=== PATIENT | male | born 1950 | race African-American/Black ===

== ENCOUNTER 2017-05-18 12:22 | Emergency (ER) | payer OTHER, BC ==
[2017-05-18 12:31] VITALS: BP 135/79
[2017-05-18] MEDS ORDERED: KETOROLAC TROMETHAMINE 60 MG/2 ML SDV IM ONE (13:11)
--- NOTE | 2017-05-18 13:17 | ER Document Report ---
ED Neck/Back Problem - General Chief Complaint: Back Pain Stated Complaint: LOW BACK PAIN Time Seen by Provider: 05/18/17 12:59 Mode of Arrival: Ambulatory Information source: Patient TRAVEL OUTSIDE OF THE [place] IN LAST 30 DAYS: No - HPI Patient complains to provider of: Pain Onset: Yesterday Where: Home Onset: Sudden Timing: Constant Quality of pain: Achy, Cramping Severity: Moderate Pain Level: 2 Context: denies: Became dizzy, Fall/near-fall, Seizure Recent injury: No Associated symptoms: Like prior neck/back pain, Lower back pain. denies: Chest pain, Abdominal pain, Chills, Constipation, Fever, Incontinence, Motor loss, Numbness/tingling, Radiation to arm, Radiation to chest, Radiation to leg, Sensory loss, Sweaty, Unable to urinate, Upper back pain Exacerbated by: Movement of trunk Relieved by: Remaining still Similar symptoms previously: Yes Recently seen / treated by doctor: Yes Notes: This is a very pleasant 66-year-old male with a history of low back pain that arrives with complaints of low back pain. States that he normally takes Naprosyn but is currently out. He states that he stepped down hard yesterday at home and since that time has had some spasms in his lower back. He states that he has had this in the past and that this feels exactly the same as prior low back pain he has had. He denies any trauma or fall. He denies abdominal pain. He denies bowel or bladder dysfunction. He denies blood thinners. He denies IV drug use or fevers. No numbness tingling or weakness. The pain is worse when he moves his back, better with rest. No other complaints at this time. - Related Data Allergies/Adverse Reactions: bacitracin [From Neosporin] Allergy (Verified 05/08/16 17:33) bacitracin zinc [From Neosporin] Allergy (Verified 05/08/16 17:33) gramicidin D [From Neosporin] Allergy (Verified 05/08/16 17:33) neomycin sulfate [From Neosporin] Allergy (Verified 05/08/16 17:33) polymyxin B [From Neosporin] Allergy (Verified 05/08/16 17:33) polymyxin B sulfate [From Neosporin] Allergy (Verified 05/08/16 17:33) Past Medical History - Social History Smoking Status: Unknown if Ever Smoked Family History: CVA, DM, Hyperlipidemia, Hypertension Patient has suicidal ideation: No Patient has homicidal ideation: No - Past Medical History Cardiac Medical History: Reports: Hx Hypercholesterolemia, Hx Hypertension Renal/ Medical History: Denies: Hx Peritoneal Dialysis Musculoskeltal Medical History: 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 HEAD: normocephalic, atraumatic EYES: conjunctiva pink without discharge, no external redness or swelling. EARS: no external swelling, no external redness NOSE: atraumatic, no external swelling MOUTH/THROAT: mucous membranes moist and pink, posterior pharynx without erythema, swelling, exudate. No trismus or drooling. NECK: soft, supple, full range of motion, no meningismus. CHEST: no distress, lungs clear and equal throughout. No wheezing, rales, rhonchi. CARDIAC: regular rate and rhythm, no murmur, normal capillary refill, normal pulses. No peripheral edema noted. ABDOMEN: soft, nontender, no pusatile mass. BACK: Tenderness to palpation of the lumbar spine and lumbar paraspinal muscles with mild spasm noted to the bilateral lumbar paraspinal muscles. No CVA tenderness. EXTREMITIES: full range of motion of all extremities. No redness, no swelling. NEURO: alert and oriented -3, no focal deficits, full range of motion of all extremities. 5 out of 5 flexion and extension of the lower extremities bilaterally. Patellar and Achilles deep tendon reflexes are +2 bilaterally. Normal sensation with no saddle anesthesia. PYSCH: appropriate mood, affect. Patient is cooperative. SKIN: pink, warm, dry, no rash. Course - Re-evaluation Re-evalutation: 05/18/17 13:15 The patient is nontoxic appearing with stable vitals. The patient has a history of low back pain. He started having low back pain when he stepped down hard yesterday and states that he is having spasms in his lower back. He has an exam consistent with lumbar paraspinal muscle spasm. Is no sign or risk of cauda equina/epidural abscess/bleed, discitis, AAA, or other serious cause of back pain. He has no abdominal tenderness on exam. Normal pulses. No fever. Patient will be given a shot of Toradol in the emergency department and discharged home with Naprosyn and Zanaflex. Follow-up with his doctor if not better in the next 5-7 days, sooner for increased pain, fever, difficulty controlling bowels or bladder, or any further concerns. The patient is noted to have elevated blood pressure during today's emergency department visit. The patient was informed of this finding. The patient was instructed that this may be related to pre-hypertension and requires further evaluation with a primary care provider. The patient has no hypertensive symptoms at this time. - Vital Signs Vital signs: Temp Pulse Resp BP Pulse Ox 97.9 F 79 16 135/79 H 99 05/18/17 12:28 05/18/17 12:28 05/18/17 12:28 05/18/17 12:28 05/18/17 12:28 Discharge - Discharge Clinical Impression: Lumbar paraspinal muscle spasm Condition: Stable Disposition: HOME, SELF-CARE Instructions: Low Back Pain ([facility]), Muscle Strain ([facility]) Additional Instructions: Take medications as prescribed. Rest. Ice or heat to sore area. Follow-up if not better in 1 week, sooner for increased pain, fever, difficulty controlling her bowels or bladder, or any further concerns. Your blood pressure was elevated during today's visit. Have this rechecked with your doctor. Prescriptions: Naproxen 500 mg PO BID #20 tablet Tizanidine HCl [Zanaflex 4 Mg Tablet] 4 mg PO TID PRN #15 tablet PRN Reason: Forms: Elevated Blood Pressure
== END 2017-05-18 13:23 | disposition home or self-care (01) ==
LOC: ER 12:22
DX: M62.830 Muscle spasm of back (principal); M54.5 Low back pain; I10 Essential (primary) hypertension; Z88.3 Allergy status to other anti-infective agents
CPT/HCPCS: 99283; 96372; J1885

== ENCOUNTER 2017-06-20 09:56 | Emergency (ER) | payer OTHER, BC ==
[2017-06-20] MEDS ORDERED: MECLIZINE HCL 25 MG TABLET PO ONE (10:10)
--- NOTE | 2017-06-20 10:12 | ER Document Report ---
ED Dizziness/Weakness - General Chief Complaint: Dizziness Stated Complaint: DIZZINESS Time Seen by Provider: 06/20/17 10:01 Mode of Arrival: Ambulatory Information source: Patient TRAVEL OUTSIDE OF THE [place] IN LAST 30 DAYS: No - HPI Patient complains to provider of: Dizziness Onset: Other - 4 days Onset/Duration: Intermittent Quality of pain: Fullness Severity: Mild Pain Level: 1 Exacerbated by: Change in position Baseline gait: Walks w/o assistance Notes: Patient is a 66-year-old male presenting to the emergency room today complaining of disease weakness that has been going on intermittently over the past 4 days, symptoms are worsened when he is bending over and then stands up straight, he reports sinus congestion with a mild headache, blurred vision at times, nausea at times but no vomiting, no fever or chills, no head injury, he does report sinus fullness, history of similar symptoms with sinus infection 2 years ago and then again one year ago, symptoms resolved after course of antibiotics, patient denies any chest pain or shortness of breath - Related Data Allergies/Adverse Reactions: bacitracin [From Neosporin] Allergy (Verified 06/20/17 09:59) bacitracin zinc [From Neosporin] Allergy (Verified 06/20/17 09:59) gramicidin D [From Neosporin] Allergy (Verified 06/20/17 09:59) neomycin sulfate [From Neosporin] Allergy (Verified 06/20/17 09:59) polymyxin B [From Neosporin] Allergy (Verified 06/20/17 09:59) polymyxin B sulfate [From Neosporin] Allergy (Verified 06/20/17 09:59) Past Medical History - General Information source: Patient - Social History Smoking Status: Former Smoker Family History: CVA, DM, Hyperlipidemia, Hypertension - Past Medical History Cardiac Medical History: Reports: Hx Hypercholesterolemia, Hx Hypertension Renal/ Medical History: Denies: Hx Peritoneal Dialysis Musculoskeltal Medical History: 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 Traumatic Medical History: Reports: Hx Fractures - Finger needed reattached Past Surgical History: Reports: Hx Orthopedic Surgery - Reattachment of finger - Immunizations Hx Diphtheria, Pertussis, Tetanus Vaccination: Yes Review of Systems - Review of Systems Constitutional: No symptoms reported EENT: Sinus pressure Cardiovascular: Dizziness Respiratory: No symptoms reported Gastrointestinal: No symptoms reported Genitourinary: No symptoms reported Male Genitourinary: No symptoms reported Musculoskeletal: No symptoms reported Skin: No symptoms reported Hematologic/Lymphatic: No symptoms reported Neurological/Psychological: No symptoms reported -: Yes All other systems reviewed and negative Physical Exam - Vital signs Vitals: Temp Pulse Resp BP Pulse Ox 97.9 F 75 16 150/78 H 97 06/20/17 10:00 06/20/17 10:00 06/20/17 10:00 06/20/17 10:00 06/20/17 10:00 Interpretation: Normal - General General appearance: Appears well, Alert - HEENT Head: Normocephalic, Atraumatic Eyes: Normal Conjunctiva: Normal Extraocular movements intact: Yes Eyelashes: Normal Pupils: PERRL Sinus: Maxillary, Tenderness Nasal: Normal Mouth/Lips: Normal - Respiratory Respiratory status: No respiratory distress Chest status: Nontender Breath sounds: Normal Chest palpation: Normal - Cardiovascular Rhythm: Regular Heart sounds: Normal auscultation Murmur: No - Abdominal Inspection: Normal Distension: No distension Bowel sounds: Normal Tenderness: Nontender Organomegaly: No organomegaly - Back Back: Normal, Nontender - Extremities General upper extremity: Normal inspection, Nontender, Normal color, Normal ROM , Normal temperature General lower extremity: Normal inspection, Nontender, Normal color, Normal ROM , Normal temperature, Normal weight bearing. No: Ralph's sign - Neurological Neuro grossly intact: Yes Cognition: Normal Orientation: AAOx4 Dingess Coma Scale Eye Opening: Spontaneous Floyd Coma Scale Verbal: Oriented Dingess Coma Scale Motor: Obeys Commands Floyd Coma Scale Total: 15 Speech: Normal Motor strength normal: LUE, RUE, LLE, RLE Sensory: Normal - Psychological Associated symptoms: Normal affect, Normal mood - Skin Skin Temperature: Warm Skin Moisture: Dry Skin Color: Normal Course - Re-evaluation Re-evalutation: 06/20/17 15:48 Patient reports some improvement with meclizine, and imaging findings were discussed with him at bedside which are unremarkable, patient was discharged with prescription for meclizine and advised to follow-up with his primary care provider, patient acknowledges understanding and agreement with this plan - Vital Signs Vital signs: Temp Pulse Resp BP Pulse Ox 98.5 F 70 16 139/82 H 98 06/20/17 11:12 06/20/17 11:12 06/20/17 11:12 06/20/17 11:12 06/20/17 11:12 - Diagnostic Test Radiology reviewed: Image reviewed, Reports reviewed Discharge - Discharge Clinical Impression: Dizziness Condition: Stable Disposition: HOME, SELF-CARE Instructions: Dizziness ([facility]), Meclizine ([facility]) Additional Instructions: Follow up with your primary care provider in one to 2 days. Return to the emergency room immediately if symptoms worsen or any additional concerns. Prescriptions: Meclizine HCl [Antivert 25 mg Tablet] 25 mg PO TID #20 tablet Referrals: CARMEN SALDANA PA [Primary Care Provider] - Follow up as needed
--- NOTE | 2017-06-20 11:02 | RADIOLOGY REPORT (SQ) ---
EXAM DESCRIPTION: CT HEAD WITHOUT COMPLETED DATE/TIME: 06/20/2017 10:33 am REASON FOR STUDY: injury COMPARISON: 2014. TECHNIQUE: Axial images acquired through the brain without intravenous contrast. Images reviewed wi th bone, brain and subdural windows. Images stored on PACS. All CT scanners at this facility use dose modulation, iterative reconstruction, and/or weight based d osing when appropriate to reduce radiation dose to as low as reasonably achievable (ALARA). [facility]: Dose Right [facility]: CareDose [facility]: Dose Right [facility]: Teradose 4D [facility]: [employer] RADIATION DOSE: Up-to-date CT equipment and radiation dose reduction techniques were employed. CTDIv ol: 64.6 mGy. DLP: 1163 mGy-cm. mGy. LIMITATIONS: None. FINDINGS: VENTRICLES: Normal size and contour. CEREBRUM: No masses. No hemorrhage. No midline shift. No evidence for acute infarction. Normal gra y/white matter differentiation. No areas of low density in the white matter. CEREBELLUM: No masses. No hemorrhage. No alteration of density. No evidence for acute infarction. EXTRAAXIAL SPACES: No fluid collections. No masses. ORBITS AND GLOBE: No intra- or extraconal masses. Normal contour of globe without masses. CALVARIUM: No fracture. PARANASAL SINUSES: No fluid or mucosal thickening. SOFT TISSUES: No mass or hematoma. OTHER: No other significant finding. IMPRESSION: NORMAL BRAIN CT WITHOUT CONTRAST. EVIDENCE OF ACUTE STROKE: NO. COMMENT: Quality ID # [id number]: Final reports with documentation of one or more dose reduction techniques (e.g., Automated exposure control, adjustment of the mA and/or kV according to patient size, use of iterative reconstruction technique) TECHNICAL DOCUMENTATION: JOB ID: [id number] [employer]- All Rights Reserved
[2017-06-20 11:14] VITALS: BP 139/82
== END 2017-06-20 11:15 | disposition home or self-care (01) ==
LOC: ER 09:56
DX: R42 Dizziness and giddiness (principal); R53.1 Weakness; R09.81 Nasal congestion; R51 Headache; H53.8 Other visual disturbances; R11.0 Nausea; Z88.3 Allergy status to other anti-infective agents; Z87.891 Personal history of nicotine dependence; I10 Essential (primary) hypertension; Z82.3 Family history of stroke
CPT/HCPCS: 70450; 99284

== ENCOUNTER 2017-09-23 19:48 | Emergency (ER) | payer OTHER, BC ==
[2017-09-23] MEDS ORDERED: AZITHROMYCIN 250 MG TABLET ONE (20:48)
[2017-09-23] MEDS ORDERED: HYDROCODONE/ACETAMINOPHEN 5-325 MG (6 TAB/ER DISP) ONE (20:49)
--- NOTE | 2017-09-23 22:11 | EKG REPORT ---
SEVERITY:- ABNORMAL ECG - SINUS RHYTHM INCOMPLETE RIGHT BUNDLE BRANCH BLOCK : Confirmed by: Gisella St 23-Sep-2017 22:11:24
--- NOTE | 2017-09-24 09:15 | RADIOLOGY REPORT (SQ) ---
EXAM DESCRIPTION: RIBS LEFT W/PA CHEST COMPLETED DATE/TIME: 09/24/2017 12:36 am REASON FOR STUDY: RIB PAIN WITH INJURY COMPARISON: 12/01/2015 TECHNIQUE: Frontal view of the chest and additional views of the left ribs acquired. NUMBER OF VIEWS: Five view. LIMITATIONS: None. FINDINGS: FRONTAL CXR: No pneumothorax. No pleural effusion. No atelectasis or infiltrates. RIBS: There is an old healed anterior 7th rib fracture. No identified acute fracture. OTHER: No other significant finding. IMPRESSION: No acute fracture. Old healed anterior 7th rib fracture. No pneumothorax. COMMENT: SITE OF TRAUMA/COMPLAINT MARKED/STAMP COMPLETED: NO. TECHNICAL DOCUMENTATION: JOB ID: [id number] [employer] [facility]- All Rights Reserved
== END 2017-09-23 21:00 | disposition home or self-care (01) ==
LOC: ER 19:48
DX: J40 Bronchitis, not specified as acute or chronic (principal); S29.011A Strain of muscle and tendon of front wall of thorax, initial encounter; X58.XXXA Exposure to other specified factors, initial encounter; I10 Essential (primary) hypertension; E78.5 Hyperlipidemia, unspecified
CPT/HCPCS: 93005; 93010; 99285

== ENCOUNTER 2017-11-26 16:09 | Emergency (ER) | payer OTHER, BC ==
--- NOTE | 2017-11-26 18:28 | RADIOLOGY REPORT (SQ) ---
EXAM DESCRIPTION: L SPINE WHOLE COMPLETED DATE/TIME: 11/26/2017 6:14 pm REASON FOR STUDY: PAIN COMPARISON: None. NUMBER OF VIEWS: Five views including obliques. TECHNIQUE: AP, lateral, oblique, and sacral radiographic images acquired of the lumbar spine. LIMITATIONS: None. FINDINGS: MINERALIZATION: Normal. SEGMENTATION: Normal. No transitional anatomy. ALIGNMENT: Normal. VERTEBRAE: Maintained height. No fracture or worrisome bone lesion. DISCS: Preserved height. No significant osteophytes or end plate irregularity. POSTERIOR ELEMENTS: Pedicles and facets are intact. No pars defect or posterior arch defects. HARDWARE: None in the spine. PARASPINAL SOFT TISSUES: Normal. PELVIS: Intact as visualized. No fractures or worrisome bone lesions. SI joints intact. OTHER: No other significant finding. IMPRESSION: No significant vertebral compression or disc space reduction is seen. No significant de generative changes are identified. Other findings as noted above TECHNICAL DOCUMENTATION: JOB ID: [id number] [employer]- All Rights Reserved Reading location - IP/workstation name: [email or web address]
[2017-11-26] MEDS ORDERED: TRAMADOL HCL 50 MG TABLET PO ONE (18:32)
--- NOTE | 2017-11-26 18:38 | ER Document Report ---
ED Neck/Back Problem - General Chief Complaint: Low Back Pain Stated Complaint: BACK PAIN Time Seen by Provider: 11/26/17 17:57 Mode of Arrival: Ambulatory Information source: Patient TRAVEL OUTSIDE OF THE [place] IN LAST 30 DAYS: No - HPI Patient complains to provider of: Pain, Lower back Notes: Patient is here with complaints of left low back pain. States the pain started last night when he has went to step up a step. The pain was sudden. He has had very similar pain to this in the past. He denies any traumatic injury. No fall. He denies any numbness, tingling, weakness. He denies abdominal pain. He denies bowel or bladder dysfunction, IV drug use, blood thinners, weakness in the legs. He denies dysuria or hematuria. No rash. No chest pain or shortness of breath. Patient has a history of intermittent back pain very similar to this in the past. He reports that he has been taking Naprosyn without any relief. Pain is worse with any sort of movement, nothing seems to make it better. He denies any other complaints at this time. - Related Data Allergies/Adverse Reactions: bacitracin [From Neosporin] Allergy (Verified 11/26/17 16:10) bacitracin zinc [From Neosporin] Allergy (Verified 11/26/17 16:10) gramicidin D [From Neosporin] Allergy (Verified 11/26/17 16:10) neomycin sulfate [From Neosporin] Allergy (Verified 11/26/17 16:10) polymyxin B [From Neosporin] Allergy (Verified 11/26/17 16:10) polymyxin B sulfate [From Neosporin] Allergy (Verified 11/26/17 16:10) Past Medical History - Social History Smoking Status: Unknown if Ever Smoked Family History: CVA, DM, Hyperlipidemia, Hypertension - Past Medical History Cardiac Medical History: Reports: Hx Hypercholesterolemia, Hx Hypertension Renal/ Medical History: Denies: Hx Peritoneal Dialysis Musculoskeltal Medical History: 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 HEAD: normocephalic, atraumatic EYES: conjunctiva pink without discharge, no external redness or swelling. EARS: no external swelling, no external redness NOSE: atraumatic, no external swelling MOUTH/THROAT: mucous membranes moist and pink, posterior pharynx without erythema, swelling, exudate. No trismus or drooling. NECK: soft, supple, full range of motion, no meningismus. CHEST: no distress, lungs clear and equal throughout. No wheezing, rales, rhonchi. CARDIAC: regular rate and rhythm, no murmur, normal capillary refill, normal pulses. No peripheral edema noted. ABDOMEN: soft, nontender, no pusatile mass. BACK: No CVA tenderness. Tenderness to the left SI joint/L5 area. No midline tenderness step-offs or crepitus. EXTREMITIES: full range of motion of all extremities. No redness, no swelling. NEURO: alert and oriented A&O x 3, no focal deficits, full range of motion of all extremities. 5 out of 5 flexion and extension of the lower extremities bilaterally. Patellar and Achilles deep tendon reflexes are +2 bilaterally. Normal sensation with no saddle anesthesia. Patient can dorsiflex the great toes bilaterally. PYSCH: appropriate mood, affect. Patient is cooperative. SKIN: pink, warm, dry, no rash. Course - Re-evaluation Re-evalutation: 11/26/17 18:35 The patient is nontoxic appearing with stable vitals. The patient is here with complaints of left low back pain. This started suddenly when he was stepping up on a step yesterday. The pain is worse with movement. He has a history of having pain very similar this in the past. He denies any trauma or falls. Is not on blood thinners. He has no sign or risk of cauda equina, epidural abscess /bleed, discitis, osteomyelitis. He denies any urinary symptoms. No abdominal pain. No sign of AAA. This feels very similar to pain that he has had in his back in the past. He has tried Naprosyn without relief. This point pain certainly appears to be muscular skeletal in nature. He had an x-ray today that shows no acute abnormality. The patient will be given a dose of tramadol and discharged home with tramadol to take as needed for pain. He was instructed to follow-up with his primary care doctor at the next available appointment. He should return the emergency department if he develops worsening pain, high fever, difficulty controlling his bowels or his bladder, weakness, or for any further concerns. The patient is noted to have elevated blood pressure during today's emergency department visit. The patient was informed of this finding. The patient was instructed that this may be related to pre-hypertension and requires further evaluation with a primary care provider. The patient has no hypertensive symptoms at this time. The patient's emergency department workup and current diagnosis were explained to the patient and or family. Follow-up instructions were provided. Medications if prescribed were discussed. Instructions for when to return to the emergency department including specific worrisome symptoms were discussed with the patient and/or family. - Vital Signs Vital signs: Temp Pulse Resp BP Pulse Ox 98.3 F 78 17 143/84 H 97 11/26/17 16:24 11/26/17 16:24 11/26/17 16:24 11/26/17 16:24 11/26/17 16:24 - Diagnostic Test Radiology reviewed: Image reviewed, Reports reviewed - Lumbar spine without acute findings per the radiologist. Discharge - Discharge Clinical Impression: Lumbar strain Qualifiers: Encounter type: initial encounter Qualified Code(s): S39.012A - Strain of muscle, fascia and tendon of lower back, initial encounter Condition: Stable Disposition: HOME, SELF-CARE Instructions: Low Back Pain ([facility]), Muscle Strain ([facility]), Oral Narcotic Medication ([facility]) Additional Instructions: Take medications as prescribed. Stay active. Follow-up with your doctor at the next available appointment for recheck. Follow-up sooner for increasing pain, high fever, difficulty controlling her bowels or bladder, abdominal pain, chest pain, shortness of breath, weakness in the legs, or for any further concerns. Your blood pressure was elevated during today's visit. Have this rechecked with your doctor. The medication you were prescribed today may cause drowsiness. Do not drive or operate heavy machinery while taking this medication. Prescriptions: Tramadol HCl [Ultram 50 mg Tablet] 50 mg PO Q6HP PRN #12 tablet PRN Reason: Forms: Elevated Blood Pressure, Smoking Cessation Education Referrals: [facility] [Provider Group] - Follow up as needed
[2017-11-26 19:17] VITALS: BP 150/89
== END 2017-11-26 19:17 | disposition home or self-care (01) ==
LOC: ER 16:09
DX: S39.012A Strain of muscle, fascia and tendon of lower back, initial encounter (principal); Z79.899 Other long term (current) drug therapy; X58.XXXA Exposure to other specified factors, initial encounter
CPT/HCPCS: 72110; 99284

== ENCOUNTER 2018-03-07 09:00 | Emergency (ER) | payer OTHER, BC ==
[2018-03-07 09:11] VITALS: BP 143/82
[2018-03-07] MEDS ORDERED: KETOROLAC TROMETHAMINE 60 MG/2 ML SDV IM ONE (09:49)
[2018-03-07] MEDS ORDERED: DEXAMETHASONE SOD PHOS INJ 10 MG/1 ML VIAL IM ONE (09:49)
--- NOTE | 2018-03-07 09:52 | ER Document Report ---
ED Neck/Back Problem - General Chief Complaint: Low Back Pain Stated Complaint: BACK PAIN Time Seen by Provider: 03/07/18 09:48 Mode of Arrival: Ambulatory Information source: Patient Notes: 67-year-old male presented ED for complaint of low back pain after he was stepping down stairs at home yesterday morning. He states he did not fall and he did not injure himself he was just walking down the stairs. Patient states he has had history of low back pain in the past. Patient is alert and oriented , respirations regular and unlabored, speaking in full sentences, walking with a even steady gait. TRAVEL OUTSIDE OF THE [place] IN LAST 30 DAYS: No - HPI Patient complains to provider of: Lower back Onset: Yesterday Where: Home, Indoors Onset: Gradual - Has a history of chronic back pain Timing: Still present Severity: Moderate Pain Level: 3 Recent injury: No Associated symptoms: Like prior neck/back pain, Radiation to leg, Lower back pain. denies: Fever, Incontinence, Motor loss, Numbness/tingling, Radiation to arm, Radiation to chest, Sensory loss - Right, Sweaty, Unable to urinate, Upper back pain Exacerbated by: Movement of trunk Relieved by: Nothing Similar symptoms previously: Yes Recently seen / treated by doctor: No - Related Data Allergies/Adverse Reactions: bacitracin [From Neosporin] Allergy (Verified 11/26/17 19:14) bacitracin zinc [From Neosporin] Allergy (Verified 11/26/17 19:14) gramicidin D [From Neosporin] Allergy (Verified 11/26/17 19:14) neomycin sulfate [From Neosporin] Allergy (Verified 11/26/17 19:14) polymyxin B [From Neosporin] Allergy (Verified 11/26/17 19:14) polymyxin B sulfate [From Neosporin] Allergy (Verified 11/26/17 19:14) Past Medical History - General Information source: Patient - Social History Smoking Status: Never Smoker Cigarette use (# per day): No Chew tobacco use (# tins/day): No Smoking Education Provided: No Frequency of alcohol use: None Drug Abuse: None Lives with: Spouse/Significant other Family History: CVA, DM, Hyperlipidemia, Hypertension Patient has suicidal ideation: No Patient has homicidal ideation: No - Past Medical History Cardiac Medical History: Reports: Hx Hypercholesterolemia, Hx Hypertension Pulmonary Medical History: Reports: None EENT Medical History: Reports: None Neurological Medical History: Reports: None Endocrine Medical History: Reports: None Renal/ Medical History: Reports: None Malignancy Medical History: Reports None GI Medical History: Reports: None Musculoskeltal Medical History: Reports Hx Arthritis - Chronic back pain, 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 Skin Medical History: Reports None Psychiatric Medical History: Reports: None Traumatic Medical History: Reports: Hx Fractures - Finger needed reattached Infectious Medical History: Reports: None Past Surgical History: Reports: Hx Orthopedic Surgery - Reattachment of finger, total knee replacement left - Immunizations Immunizations up to date: Yes Hx Diphtheria, Pertussis, Tetanus Vaccination: Yes Review of Systems - Review of Systems Constitutional: No symptoms reported EENT: No symptoms reported Cardiovascular: No symptoms reported Respiratory: No symptoms reported Gastrointestinal: No symptoms reported Genitourinary: No symptoms reported Male Genitourinary: No symptoms reported Musculoskeletal: Back pain, Muscle pain, Muscle stiffness Skin: No symptoms reported Hematologic/Lymphatic: No symptoms reported Neurological/Psychological: No symptoms reported -: Yes All other systems reviewed and negative Physical Exam - Vital signs Vitals: Temp Pulse Resp BP Pulse Ox 98.0 F 81 18 143/82 H 97 03/07/18 09:09 03/07/18 09:09 03/07/18 09:09 03/07/18 09:09 03/07/18 09:09 Interpretation: Normal - General General appearance: Appears well, Alert - HEENT Head: Normocephalic, Atraumatic Eyes: Normal Pupils: PERRL - Respiratory Respiratory status: No respiratory distress Chest status: Nontender Breath sounds: Normal Chest palpation: Normal - Cardiovascular Rhythm: Regular Heart sounds: Normal auscultation Murmur: No - Abdominal Inspection: Normal Distension: No distension Bowel sounds: Normal Tenderness: Nontender Organomegaly: No organomegaly - Back Back: Normal, Tender - Patient complained of bilateral back pain with radiation down the right. States he was going down the steps last night when the pain became worse. States he has a history of chronic back pain.. No: Deformity/ step-off, CVA tenderness, Vertebra tenderness, Scars, Scoliosis, Wounds - Extremities General upper extremity: Normal inspection, Nontender, Normal color, Normal ROM , Normal temperature General lower extremity: Normal inspection, Nontender, Normal color, Normal ROM , Normal temperature, Normal weight bearing. No: Ralph's sign - Neurological Neuro grossly intact: Yes Cognition: Normal Orientation: AAOx4 Floyd Coma Scale Eye Opening: Spontaneous [place] Coma Scale Verbal: Oriented Floyd Coma Scale Motor: Obeys Commands Floyd Coma Scale Total: 15 Speech: Normal Motor strength normal: LUE, RUE, LLE, RLE Sensory: Normal - Psychological Associated symptoms: Normal affect, Normal mood - Skin Skin Temperature: Warm Skin Moisture: Dry Skin Color: Normal Course - Re-evaluation Re-evalutation: 03/07/18 20:46 Patient was treated with Toradol and Decadron IM and stated he did receive some relief from his pain Patient was discharged home with instructions for ice and heat packs, back exercises, ibuprofen, and use of Aspercreme or lidocaine patches. Patient was instructed to follow-up with his primary doctor and a back specialist for continued pain. After performing a Medical Screening Examination, I estimate there is LOW risk for EXPANDING OR RUPTURED ABDOMINAL AORTIC ANEURYSM, CAUDA EQUINA SYNDROME, EPIDURAL MASS LESION, or HERNIATED DISK CAUSING SEVERE SPINAL STENOSIS, thus I consider the discharge disposition reasonable. I have reevaluated this patient multiple times and no significant life threatening changes are noted. The patient and I have discussed the diagnosis and risks, and we agree with discharging home and close follow-up. We also discussed returning to the Emergency Department immediately if new or worsening symptoms occur with the understanding that symptoms and presentations can change. We have discussed the symptoms which are most concerning (e.g., saddle anesthesia, urinary or bowel incontinence or retention, changing or worsening pain) that necessitate immediate return. 03/07/18 20:47 - Vital Signs Vital signs: Temp Pulse Resp BP Pulse Ox 98.0 F 81 18 143/82 H 97 03/07/18 09:09 03/07/18 09:09 03/07/18 09:09 03/07/18 09:09 03/07/18 09:09 Discharge - Discharge Clinical Impression: Low back pain Qualifiers: Chronicity: chronic Back pain laterality: bilateral Sciatica presence: with sciatica Sciatica laterality: sciatica of right side Qualified Code(s): M54.41 - Lumbago with sciatica, right side; G89.29 - Other chronic pain; G89.29 - Other chronic pain Condition: Stable Disposition: HOME, SELF-CARE Instructions: Family Physicians / Practices Additional Instructions: LOW BACK PAIN: Three out of every four people will have an episode of disabling back pain during their lifetime. Most commonly the pain is due to straining of the muscles and ligaments in the low back. Usual treatment includes: (1) Rest on a firm surface. Avoid lying on your stomach. (2) Ice pack the painful area. After a few days, gentle heat may be used intermittently to relax the area, or ice packs can be continued. (3) Medication may be needed -- muscle relaxers and antiinflammatory medicines are commonly used. (4) As the back improves, exercises are prescribed to strengthen the back and abdominal muscles. Your doctor will advise you on the proper care for your back at each stage in your recovery. You may be better in a few days -- or healing may take several weeks. If new symptoms of a "herniated disc" (radiation of pain, numbness, or tingling down the back of the leg or weakness in the leg) occur, you should be re-examined. Further testing may be necessary. Toradol Injection You have been given an injection of ketorolac tromethamine (Toradol). This is an excellent, safe drug for pain control. It also has potent antiinflammatory action. You should have significant pain relief within about one hour. Toradol is not addicting and is non-sedating. It does not interfere with driving or work. Call or return if you develop itching, hives, shortness of breath, or rash. Stretching Exercises for the Back The physician has recommended that you begin stretching exercises for your back. These are often used even while the back is painful. However, you should notify the physician if the activities seem to increase your pain. PELVIC TILT: Lie flat on your back with knees bent. Tighten your stomach and buttock muscles so it flattens your lower back against the floor. Hold 10 seconds. Repeat 10 times, twice daily. KNEE RAISE: Lying on the back with knees bent, raise one knee to your chest, then the other. Hold both knees against the chest 10 seconds, then lower one knee at a time. Repeat 10 times, twice daily. PARTIAL TRUNK RAISE: Lie face down, arms at your sides. Keeping your waist on the floor, use your arms raise your chest up. Support yourself on your elbows for 30 seconds. Repeat twice daily, increasing the time to two minutes as you recover. STEROID MEDICATION: You have been given an injection of medicine of the cortisone/steroid class. This medication is used to control inflammation or allergy. It is often continued as a pill for a short period of time, until the acute process subsides. There are usually no side effects from short-term use of cortisone-like medications. Some persons feel an increased sense of well-being and are not sleepy at bedtime. Long-term use of cortisone medications is best avoided, unless required for a severe condition. If your condition does not remit, or relapses after the course of corticosteroid medication, you should consult your physician. ICE PACKS: Apply ice packs frequently against the painful area. Many different schedules are recommended, such as "20 minutes on, 20 minutes off" or "one hour ice, two hours rest." If you need to work, you may need to go longer between ice treatments. You should plan to have the area ice packed AT LEAST one fourth of the time. The ice should be applied over the wrap, tape, or splint, or over a layer of cloth -- not directly against the skin. Some ice bags have a built-in cloth and can be put directly on the skin. WARM PACKS: After approximately two days, apply gentle heat (such as a heating pad or hot water bottle) for about 20 to 30 minutes about every two hours -- at least four times daily. Warmth and elevation will help you make a more rapid recovery , and will ease the pain considerably. Do not use HOT heat, and never apply heat for longer than 30 minutes. The continuous heat can invisibly damage skin and muscles -- even when no burn is seen on the surface. Damaged muscles can make you MORE sore. FOLLOW-UP CARE: If you have been referred to a physician for follow-up care, call the physician s office for an appointment as you were instructed or within the next two days. If you experience worsening or a significant change in your symptoms, notify the physician immediately or return to the Emergency Department at any time for re-evaluation. Forms: Elevated Blood Pressure, Smoking Cessation Education
== END 2018-03-07 10:15 | disposition home or self-care (01) ==
LOC: ER 09:00
DX: M54.41 Lumbago with sciatica, right side (principal); G89.29 Other chronic pain; X58.XXXA Exposure to other specified factors, initial encounter; Y93.01 Activity, walking, marching and hiking; I10 Essential (primary) hypertension
CPT/HCPCS: 99283; 96372; J1885; J1100

== ENCOUNTER 2018-06-12 03:43 | Emergency (ER) | payer OTHER, MEDICARE, BC ==
[2018-06-12 04:06] VITALS: BP 140/79
[2018-06-12] MEDS ORDERED: KETOROLAC TROMETHAMINE 60 MG/2 ML SDV IM ONE (04:32)
--- NOTE | 2018-06-12 04:34 | ER Document Report ---
HPI - HPI Pain Level: 5 Notes: Patient is a 67-year-old male who presents to the ED complaining of numbness and tingling to the right hand, weakness in site controller, and aching pain over the last 3-4 days. Patient states that he was using a chainsaw prior to that and does use his hands often. He denies any known injury. No other concerns or complaints. Denies IV drug use. Denies any headache, fever, neck pain, URI, sore throat, chest pain, palpitations, syncope, cough, shortness of breath, wheeze, dyspnea, abdominal pain, nausea/vomiting/diarrhea, urinary retention, dysuria, hematuria, loss of control of bowel or bladder, saddle anesthesia, rash. - ROS Systems Reviewed and Negative: Yes All other systems reviewed and negative Past Medical History - Social History Smoking Status: Unknown if Ever Smoked Family History: CVA, DM, Hyperlipidemia, Hypertension - Past Medical History Cardiac Medical History: Reports: Hx Hypercholesterolemia, Hx Hypertension Renal/ Medical History: Denies: Hx Peritoneal Dialysis Musculoskeletal Medical History: Reports Hx Arthritis - Chronic back pain, 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 Traumatic Medical History: Reports: Hx Fractures - Finger needed reattached Past Surgical History: Reports: Hx Orthopedic Surgery - Reattachment of finger, total knee replacement left - Immunizations Immunizations up to date: Yes Hx Diphtheria, Pertussis, Tetanus Vaccination: Yes Vertical Provider Document - CONSTITUTIONAL Agree With Documented VS: Yes Notes: PHYSICAL EXAMINATION: GENERAL: Well-appearing, well-nourished and in no acute distress. LUNGS: Breath sounds clear to auscultation bilaterally and equal. No wheezes rales or rhonchi. HEART: Regular rate and rhythm without murmurs, rubs, gallops. Musculoskeletal: Rt hand/wrist: No ecchymosis, erythema, warmth, or deformity noted. No bony tenderness. FROM to passive/active. Strength 5+/5. N/v intact distal. + tinel/phalen to the median nerve--reproduced patient's symptoms. No obvious atrophy at this time. Extremities: No cyanosis, clubbing, or edema b/l. Peripheral pulses 2+. Capillary refill less than 3 seconds. NEUROLOGICAL: Normal speech, normal gait. Normal sensory, motor exams PSYCH: Normal mood, normal affect. SKIN: Warm, Dry, normal turgor, no rashes or lesions noted. - INFECTION CONTROL TRAVEL OUTSIDE OF THE [place] IN LAST 30 DAYS: No Course - Re-evaluation Re-evalutation: 06/12/18 04:36 Patient is an afebrile, well-hydrated, 67-year-old male who presents to the ED with right wrist and hand pain, suspect carpal tunnel syndrome. Vitals are acceptable without any significant tachycardia, tachypnea, or hypoxia. PE is otherwise unremarkable for any neurovascular compromise, obvious tendon/ ligament rupture, obvious fracture/dislocation, septic joint. No labs or imaging warranted at this time based on H&P. Patient did have a positive Tinel and Phalen to the right wrist which correlates with his symptoms described. Cockup wrist splint given today. Toradol given IM today as well. I will send him home with a prescription for Voltaren. Recommend consult with orthopedics. Recheck with your PCM this week as well. Return to the ED with any worsening/ concerning symptoms otherwise as reviewed in discharge. Patient is in agreement. - Vital Signs Vital signs: Temp Pulse Resp BP Pulse Ox 98.4 F 71 18 140/79 H 97 06/12/18 04:03 06/12/18 04:03 06/12/18 04:03 06/12/18 04:03 06/12/18 04:03 Discharge - Discharge Clinical Impression: Carpal tunnel syndrome, right, Right hand pain Condition: Stable Disposition: HOME, SELF-CARE Instructions: Carpal Tunnel Syndrome ([facility]) Additional Instructions: Rest, Ice, Compression, Elevation Use splint as directed Tylenol/ibuprofen as needed Light stretches daily Strength exercises as able Moist heat and massage may help F/u with your PCP in 3-5 days for a recheck Consider consult(s) with Orthopedics/physical therapy for ongoing/worsening symptoms Return to the ED with any worsening symptoms and/or development of fever, headache, chest pain, palpitations, syncope, shortness of breath, trouble breathing, abdominal pain, n/v/d, muscle weakness/paralysis, numbness/tingling, swelling, redness, or other worsening symptoms that are concerning to you. Prescriptions: Diclofenac Sodium [Voltaren] 4 gm TP QID PRN #100 gel..gm. PRN Reason: Forms: Elevated Blood Pressure Referrals: [facility] ([place] [Provider Group] - Follow up as needed
== END 2018-06-12 04:55 | disposition home or self-care (01) ==
LOC: ER 03:43
DX: G56.01 Carpal tunnel syndrome, right upper limb (principal); R53.83 Other fatigue; E78.00 Pure hypercholesterolemia, unspecified; I10 Essential (primary) hypertension; Z96.652 Presence of left artificial knee joint
CPT/HCPCS: 99283; 96372; L3908; J1885

== ENCOUNTER 2018-12-18 16:21 | Emergency (ER) | payer OTHER, MEDICARE, BC ==
[2018-12-18 16:29] VITALS: BP 155/87
[2018-12-18] MEDS ORDERED: LIDOCAINE 1% INJ-PF (10 MG/ML) 30 ML SDV INJ ONE (16:42)
--- NOTE | 2018-12-18 16:43 | ER Document Report ---
ED Medical Screen (RME) - General Chief Complaint: Laceration Stated Complaint: LEG LACERATION Time Seen by Provider: 12/18/18 16:38 Primary Care Provider: CARMEN SALDANA PA [Primary Care Provider] - Follow up as needed TRAVEL OUTSIDE OF THE [place] IN LAST 30 DAYS: No - HPI Notes: 12/18/18 16:42 Patient is a 68-year-old male who slipped down steps and cut the anterior right lower leg on some brick prior to arrival. He was seen at the [place] who gave him a tetanus shot, but did not have the material to suture it so sent him here. Patient states that there has not been excessive bleeding and he has been able to ambulate without difficulty. No other concerns or complaints. Denies fever, chest pain, shortness of breath, head injury, LOC, abdominal pain. I have treated and performed a rapid initial assessment of this patient. A comprehensive ED assessment and evaluation of the patient, analysis of test results and completion of medical decision making process will be conducted by additional ED providers. PHYSICAL EXAMINATION: GENERAL: Well-appearing, well-nourished and in no acute distress. A&Ox4. Answers questions appropriately. LUNGS: Breath sounds clear to auscultation bilaterally and equal. No wheezes rales or rhonchi. HEART: Regular rate and rhythm without murmurs, rubs, gallops. Skin: There is an approximate 3 cm linear superficial laceration to the anterior lower leg without any obvious arterial bleed. - Related Data Allergies/Adverse Reactions: bacitracin [From Neosporin] Allergy (Verified 12/18/18 16:22) bacitracin zinc [From Neosporin] Allergy (Verified 12/18/18 16:22) gramicidin D [From Neosporin] Allergy (Verified 12/18/18 16:22) neomycin sulfate [From Neosporin] Allergy (Verified 12/18/18 16:22) polymyxin B [From Neosporin] Allergy (Verified 12/18/18 16:22) polymyxin B sulfate [From Neosporin] Allergy (Verified 12/18/18 16:22) Past Medical History - Past Medical History Cardiac Medical History: Reports: Hx Hypercholesterolemia, Hx Hypertension Renal/ Medical History: Denies: Hx Peritoneal Dialysis Musculoskeltal Medical History: Reports Hx Arthritis - Chronic back pain, 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 Traumatic Medical History: Reports: Hx Fractures - Finger needed reattached Past Surgical History: Reports: Hx Orthopedic Surgery - Reattachment of finger, total knee replacement left - Immunizations Immunizations up to date: Yes Hx Diphtheria, Pertussis, Tetanus Vaccination: Yes Physical Exam - Vital signs Vitals: Temp Pulse Resp BP Pulse Ox 98 F 97 20 155/87 H 97 12/18/18 16:29 12/18/18 16:29 12/18/18 16:29 12/18/18 16:29 12/18/18 16:29 Course - Vital Signs Vital signs: Temp Pulse Resp BP Pulse Ox 98 F 97 20 155/87 H 97 12/18/18 16:29 12/18/18 16:29 12/18/18 16:29 12/18/18 16:29 12/18/18 16:29 Doctor's Discharge - Discharge Referrals: CARMEN SALDANA PA [Primary Care Provider] - Follow up as needed
--- NOTE | 2018-12-18 18:41 | ER Document Report ---
ED General - General Chief Complaint: Laceration Stated Complaint: LEG LACERATION Time Seen by Provider: 12/18/18 16:38 Primary Care Provider: CARMEN SALDANA PA [Primary Care Provider] - Follow up as needed Mode of Arrival: Ambulatory Information source: Patient TRAVEL OUTSIDE OF THE [place] IN LAST 30 DAYS: No - HPI Patient complains to provider of: Left lower leg laceration Onset: Just prior to arrival Onset/Duration: Sudden Severity: Severe Pain Level: 4 Context: Trip and fall Associated symptoms: None Exacerbated by: Denies Relieved by: Denies Similar symptoms previously: No Recently seen / treated by doctor: No Notes: 68-year-old -[place] male coming in today with left lower leg laceration. He sustained it when he slipped and fell on some brick steps at his home. He had a tetanus booster given today. Saw his primary care doctor who did not have the necessary supplies for the laceration repair. No other injuries or complaints - Related Data Allergies/Adverse Reactions: bacitracin [From Neosporin] Allergy (Verified 12/18/18 16:22) bacitracin zinc [From Neosporin] Allergy (Verified 12/18/18 16:22) gramicidin D [From Neosporin] Allergy (Verified 12/18/18 16:22) neomycin sulfate [From Neosporin] Allergy (Verified 12/18/18 16:22) polymyxin B [From Neosporin] Allergy (Verified 12/18/18 16:22) polymyxin B sulfate [From Neosporin] Allergy (Verified 12/18/18 16:22) Past Medical History - General Information source: Patient - Social History Smoking Status: Former Smoker Family History: Reviewed & Not Pertinent, CVA, DM, Hyperlipidemia, Hypertension Patient has suicidal ideation: No Patient has homicidal ideation: No - Past Medical History Cardiac Medical History: Reports: Hx Hypercholesterolemia, Hx Hypertension Renal/ Medical History: Denies: Hx Peritoneal Dialysis Musculoskeletal Medical History: Reports Hx Arthritis - Chronic back pain, 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 No chills. EENT: No eye redness. No eye pain. No ear pain. No sore throat. Cardiovascular: No chest pain. No palpitations. Respiratory: No cough. No shortness of breath. No respiratory distress. Gastrointestinal: No abdominal pain. No nausea, vomiting, or diarrhea. Genitourinary: Atraumatic. No lesions. No pain. No discharge. Musculoskeletal: Atraumatic. No swelling. No deformities. Skin: Positive for laceration left lower leg Lymphatic: No swollen lymph nodes. Neurologic: No headache. No syncope. Psychiatric: No suicidal or homicidal ideation. Physical Exam - Vital signs Vitals: Temp Pulse Resp BP Pulse Ox 98 F 97 20 155/87 H 97 12/18/18 16:29 12/18/18 16:12/18/18 16:12/18/18 16:12/18/18 16:29 - Notes Notes: General: Well-developed, well-nourished. In no acute distress. Non-toxic appearing. Cardiac: Well-perfused. Regular rate and rhythm. No murmurs, rubs, or gallops. Pulmonary: No respiratory distress. No cyanosis. Bilateral lung fiels are clear to auscultation. Abdominal: Non-distended. Non-rigid. Bowels sounds are present in all four quadrants. No guarding or rebound. HEENT: Head is atraumatic. Conjunctivae not reddened. No tearing. PERRL. EOMI. Orbits atraumatic. No periorbital swelling or erythema. Oropharynx is without erythema, swelling, or exudates. Neck: Supple. No adenopathy. No meningismus. Dermatologic: Warm with good turgor. No rash. Atraumatic. Chest: Atraumatic. No chest wall tenderness to palpation. Musculoskeletal: There is a 4 cm laceration on the left mid anterior tib-fib region. No active bleeding. No bony deformity. Genitourinary: Examination deferred Neurologic: No gross neurologic deficits. Psychiatric: Normal mood. Course - Vital Signs Vital signs: Temp Pulse Resp BP Pulse Ox 98 F 97 20 155/87 H 97 12/18/18 16:29 12/18/18 16:29 12/18/18 16:29 12/18/18 16:12/18/18 16:29 Procedures - Laceration/Wound Repair Left lower leg laceration Time completed: 18:39 Wound length (cm): 4 Wound's Depth, Shape: Linear, Contused tissue Laceration pre-procedure: Sterile PPE donned, Sterile drapes applied, Shur-Clens applied Anesthetic type: 1% Lidocaine Volume Anesthetic (mLs): 10 Wound explored: Clean Wound Debrided: Minimal Wound Repaired With: Sutures Suture Size/Type: 3:0, Ethilon Number of Sutures: 7 Layer Closure?: No Post-procedure wound care: Sterile dressing applied Post-procedure NV exam normal: Yes Complications: No Notes: 12/18/18 18:39 Patient tolerated the procedure well Discharge - Discharge Clinical Impression: Leg laceration Qualifiers: Encounter type: initial encounter Laterality: left Qualified Code(s): S81.812A - Laceration without foreign body, left lower leg, initial encounter Condition: Good Instructions: Antibiotic Ointment Protection ([facility]), Laceration Care ([facility]), Soap Cleansing ([facility]), Tetanus Immunization Given ([facility]) Additional Instructions: You may see your doctor or return here to have sutures removed. Come in as early as 10 days but she can wait his latest 2 weeks to have them removed. Tylenol or ibuprofen as needed for pain and swelling. If your wound is red, warm, increasing tenderness, or having pus like drainage, you need to be seen right away for possible wound infection. Referrals: CARMEN SALDANA PA [Primary Care Provider] - 01/01/19 Print Language: Croatian
== END 2018-12-18 19:22 | disposition home or self-care (01) ==
LOC: ER 16:21
DX: S81.812A Laceration without foreign body, left lower leg, initial encounter (principal); W10.8XXA Fall (on) (from) other stairs and steps, initial encounter; Y92.009 Unspecified place in unspecified non-institutional (private) residence as the place of occurrence of the external cause; I10 Essential (primary) hypertension; Z87.891 Personal history of nicotine dependence; Z88.3 Allergy status to other anti-infective agents
CPT/HCPCS: 99282

== ENCOUNTER 2019-01-27 11:51 | Emergency (ER) | payer OTHER, MEDICARE, BC ==
[2019-01-27] MEDS ORDERED: LIDOCAINE 1%/EPINEPHRINE INJ 20 ML VIAL INJ ONE (13:25)
--- NOTE | 2019-01-27 14:31 | ER Document Report ---
ED General <NIKUNJ LYON - Last Filed: 01/27/19 15:11> - General TRAVEL OUTSIDE OF THE [place] IN LAST 30 DAYS: No <LINDA SOLIS - Last Filed: 01/27/19 18:11> - General Chief Complaint: Laceration Stated Complaint: ARM LACERATION Time Seen by Provider: 01/27/19 12:59 Primary Care Provider: CARMEN SALDANA PA [Primary Care Provider] - Follow up in 1 week Notes: Patient is a 8-year-old male that presents to the emergency department for chief complaint of right forearm laceration. Patient states that he was putting up a tin roof, and the edge of the metal cut the inside of his right forearm, he denies any weakness or difficulty moving his wrist after the injury. Denies any significant bleeding. He states he is up-to-date with his tetanus. Denies any other injuries, denies any head injury or fall. This occurred around 11 AM. He currently rates his pain as a 1 out of 10, states it is not bothering him too much. Denies any other complaints at this time. Patient is right-handed. Past Medical History: Hypertension, hyperlipidemia Past Surgical History: Total knee arthroplasty Social History: Former smoker, alcohol or drug use, is seen at the [facility]. Family History: Reviewed and noncontributory for presenting illness Allergies: Reviewed, see documented allergy list. REVIEW OF SYSTEMS: Other than noted above, the 12 point review of systems was reviewed with the patient and were negative, all pertinent findings are included in the HPI. PHYSICAL EXAMINATION: Vital signs reviewed, nursing noted reviewed. GENERAL: Well-appearing, well-nourished and in no acute distress. HEAD: Atraumatic, normocephalic. EYES: Eyes appear normal, extraocular movements intact, sclera anicteric, conjunctiva are normal. ENT: nares patent, oropharynx clear without exudates. Moist mucous membranes. NECK: Normal range of motion, supple without lymphadenopathy LUNGS: Breath sounds clear to auscultation bilaterally and equal. No wheezes rales or rhonchi. HEART: Regular rate and rhythm without murmurs ABDOMEN: Soft, nontender, normoactive bowel sounds. No rebound, guarding, or rigidity. No masses appreciated. EXTREMITIES: Nontender, good range of motion, no pitting or edema. Tendon function intact with wrist flexion and extension, and with flexion at the MCP, DIP, and PIP of all digits of the right hand. Cap refill is less than 3 seconds in all digits of the right hand as well. No other significant injury noted to the extremities. NEUROLOGICAL: No focal neurological deficits. Moves all extremities spontaneou sly Motor and sensory grossly intact on exam. PSYCH: Normal mood, normal affect. SKIN: Warm, Dry, normal turgor, there is a 3 and half centimeter laceration noted to the volar aspect of the right forearm, there is no active bleeding at this time, it is deep to the subcutaneous tissues, without visualization of any tendon involvement. (LINDA SOLIS) - Related Data Allergies/Adverse Reactions: bacitracin [From Neosporin] Allergy (Verified 01/27/19 11:53) bacitracin zinc [From Neosporin] Allergy (Verified 01/27/19 11:53) gramicidin D [From Neosporin] Allergy (Verified 01/27/19 11:53) neomycin sulfate [From Neosporin] Allergy (Verified 01/27/19 11:53) polymyxin B [From Neosporin] Allergy (Verified 01/27/19 11:53) polymyxin B sulfate [From Neosporin] Allergy (Verified 01/27/19 11:53) Past Medical History - Social History Smoking Status: Former Smoker Frequency of alcohol use: None Drug Abuse: None Family History: Reviewed & Not Pertinent, CVA, DM, Hyperlipidemia, Hypertension Patient has suicidal ideation: No Patient has homicidal ideation: No - Past Medical History Cardiac Medical History: Reports: Hx Hypercholesterolemia, Hx Hypertension Renal/ Medical History: Denies: Hx Peritoneal Dialysis Musculoskeletal Medical History: Reports Hx Arthritis - Chronic back pain, 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 Traumatic Medical History: Reports: Hx Fractures - Finger needed reattached Past Surgical History: Reports: Hx Orthopedic Surgery - Reattachment of finger, total knee replacement left - Immunizations Immunizations up to date: Yes Hx Diphtheria, Pertussis, Tetanus Vaccination: Yes <LINDA SOLIS - Last Filed: 01/27/19 18:11> - Vital signs Vitals: Temp Pulse Resp BP Pulse Ox 98.1 F 77 18 142/80 H 96 01/27/19 12:00 01/27/19 12:00 01/27/19 12:00 01/27/19 12:00 01/27/19 12:00 Course <LINDA SOLIS - Last Filed: 01/27/19 18:11> - Re-evaluation Re-evalutation: Patient's wound was repaired as described above, tolerated well, will be discharged home to follow-up in 7 days for suture removal and inspection, given signs and reasons to return to the emergency department sooner including signs of infection, or dehiscence of the wound. (LINDA SOLIS) - Vital Signs Vital signs: Temp Pulse Resp BP Pulse Ox 97.7 F 70 16 146/85 H 98 01/27/19 14:58 01/27/19 14:58 01/27/19 14:58 01/27/19 14:58 01/27/19 14:58 Procedures - Laceration/Wound Repair Right Distal Arm Time completed: 14:20 Wound length (cm): 4 Wound's Depth, Shape: Superficial, Linear Laceration pre-procedure: Sterile PPE donned, Sterile drapes applied, Shur-Clens applied Anesthetic type: 1% Lidocaine Volume Anesthetic (mLs): 5 Wound explored: Clean Irrigated w/ Saline (mLs): 30 Wound Repaired With: Sutures Suture Size/Type: 4:0, Nylon Number of Sutures: 4 Layer Closure?: No Post-procedure NV exam normal: Yes Complications: No <NIKUNJ LYON - Last Filed: 01/27/19 15:11> Discharge <NIKUNJ LYON - Last Filed: 01/27/19 15:11> <LINDA SOLIS - Last Filed: 01/27/19 18:11> - Discharge Clinical Impression: Forearm laceration Qualifiers: Encounter type: initial encounter Laterality: right Qualified Code(s): S51.811A - Laceration without foreign body of right forearm, initial encounter Condition: Stable Disposition: HOME, SELF-CARE Instructions: Laceration Care ([facility]) Additional Instructions: Please follow-up in 7 days to have your stitches removed and inspected. If you notice signs of infection such as swelling, redness, or pus drainage, please return sooner. Referrals: CARMEN SALDANA PA [Primary Care Provider] - Follow up in 1 week
[2019-01-27 14:59] VITALS: BP 146/85
== END 2019-01-27 15:01 | disposition home or self-care (01) ==
LOC: ER 11:51
DX: S51.811A Laceration without foreign body of right forearm, initial encounter (principal); W26.8XXA Contact with other sharp object(s), not elsewhere classified, initial encounter; Y93.H3 Activity, building and construction; I10 Essential (primary) hypertension; Z87.891 Personal history of nicotine dependence; Z88.3 Allergy status to other anti-infective agents
CPT/HCPCS: 12002; 99282; J3490

== ENCOUNTER 2019-02-04 08:02 | Emergency (ER) | payer OTHER, MEDICARE, BC ==
[2019-02-04 08:17] VITALS: BP 145/75
--- NOTE | 2019-02-04 09:10 | ER Document Report ---
HPI - HPI Time Seen by Provider: 02/04/19 09:08 Pain Level: 2 Notes: Patient is a 68-year-old male presenting to the emergency department with chief complaint of request for suture removal. Patient has sutures in place to his right wrist area. He states they have been present for approximately 12 days. 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 HEAD: Atraumatic, normocephalic. EYES: Pupils equal round extraocular movements intact, conjunctiva are normal. ENT: Nares patent NECK: Normal range of motion LUNGS: No respiratory distress Musculoskeletal: Normal range of motion NEUROLOGICAL: Normal speech, normal gait. PSYCH: Normal mood, normal affect. SKIN: Healed laceration noted to right lateral wrist, no erythema or drainage noted. Normal radial pulse. - INFECTION CONTROL TRAVEL OUTSIDE OF THE [place] IN LAST 30 DAYS: No Course - Re-evaluation Re-evalutation: Sutures removed without difficulty. No signs of infection are noted. Patient understands laceration care. - Vital Signs Vital signs: Temp Pulse Resp BP Pulse Ox 98.1 F 73 16 145/75 H 95 02/04/19 08:16 02/04/19 08:16 02/04/19 08:16 02/04/19 08:16 02/04/19 08:16 Discharge - Discharge Clinical Impression: Encounter for removal of sutures Condition: Stable Disposition: HOME, SELF-CARE Additional Instructions: Your sutures were removed today. Please continue to apply thin layer of triple antibiotic ointment to the area twice a day until fully healed. Continue to watch for signs of infection such as increased redness, pain, drainage from the area. If any of these occur please return to the emergency department. Referrals: CARMEN SALDANA PA [Primary Care Provider] - Follow up as needed
== END 2019-02-04 09:20 | disposition home or self-care (01) ==
LOC: ER 08:02
DX: S61.511D Laceration without foreign body of right wrist, subsequent encounter (principal); X58.XXXD Exposure to other specified factors, subsequent encounter

== ENCOUNTER 2020-06-15 12:19 | Emergency (ER) | payer OTHER, MEDICARE, BC ==
[2020-06-15 12:39] VITALS: BP 134/85
--- NOTE | 2020-06-15 13:25 | ER Document Report ---
HPI - HPI Time Seen by Provider: 06/15/20 13:17 Notes: 69-year-old male presents emergency room with right ear pain due to itching.. He was seen at [facility] emergency room a week ago, was diagnosed with otitis media, was placed on Keflex and given bacitracin treatment ointment which he is allergic to this medication. . States since that time he has had itchiness to his right ear. Has not tried any other medications. states worse this time, nothing is making better. Denies fevers, chills, chest pain,palpitations, shortness of breath, dyspnea, nausea, vomiting, diarrhea, abdominal pain, hematuria,blurred vision, double vision, loss of vision, speech changes, LH, dizziness, syncope, headaches, wheezing, ST, URI, neck pain, weakness, bowel or bladder dysfunction, saddle anesthesia, numbness or tingling in bilateral upper or lower extremities equally, muscle paralysis, weakness in bilateral upper or lower extremities equally or rash. MEDICATIONS: I agree with the patient medications as charted by the RN. ALLERGIES: I agree with the allergies as charted by the RN. PAST MEDICAL HISTORY/PAST SURGICAL HISTORY: Reviewed and agree as charted by RN. SOCIAL HISTORY: Reviewed and agree as charted by RN. FAMILY HISTORY: No significant familial comorbid conditions directly related to patient complaint EXAM: Reviewed vital signs as charted by RN. REVIEW OF SYSTEMS:reviewed vital signs by RN CONSTITUTIONAL : Denies fever, chills, or sweats. Denies recent illness. EENT: reports right ear pain/itchiness. denies eye, ear, throat, or mouth pain or symptoms. Denies nasal or sinus congestion or discharge. Denies throat, tongue, or mouth swelling or difficulty swallowing. CARDIOVASCULAR: Denies chest pain. Denies palpitations or racing or irregular heart beat. Denies ankle edema. RESPIRATORY: Denies cough, cold, or chest congestion. Denies shortness of breath, difficulty breathing, or wheezing. GASTROINTESTINAL: Denies abdominal pain or distention. Denies nausea, vomiting, or diarrhea. Denies blood in vomitus, stools, or per rectum. Denies black, tarry stools. Denies constipation. GENITOURINARY: Denies difficulty urinating, painful urination, burning, frequency, blood in urine, or discharge. MUSCULOSKELETAL: Denies back or neck pain or stiffness. Denies joint pain or swelling. SKIN: Denies rash, lesions or sores. HEMATOLOGIC : Denies easy bruising or bleeding. LYMPHATIC: Denies swollen, enlarged glands. NEUROLOGICAL: Denies confusion or altered mental status. Denies passing out or loss of consciousness. Denies dizziness or lightheadedness. Denies headache. Denies weakness or paralysis or loss of use of either side. Denies problems with gait or speech. Denies sensory loss, numbness, or tingling. Denies seizures. PSYCHIATRIC: Denies anxiety or stress. Denies depression, suicidal ideation, or homicidal ideation. ALL OTHER SYSTEMS REVIEWED AND NEGATIVE. Dictation was performed using [employer] voice recognition software PHYSICAL EXAMINATION: GENERAL: Well-appearing, well-nourished and in no acute distress. HEAD: Atraumatic, normocephalic. EYES: Pupils equal round and reactive to light, extraocular movements intact, sclera anicteric, conjunctiva are normal. ENT: Nares patent, oropharynx clear without exudates. Moist mucous membranes. Right external canal with erythema induration, no purulent drainage. Right TM with scant erythema intact. Left EAC without any erythema, exudates. Left TM pearly otto, light reflex intact. No perforation bilaterally. No pain to mastoid bone bilaterally NECK: Normal range of motion, supple without lymphadenopathy LUNGS: Breath sounds clear to auscultation bilaterally and equal. No wheezes rales or rhonchi. HEART: Regular rate and rhythm without murmurs ABDOMEN: Soft, nontender, nondistended abdomen. No guarding, no rebound. No masses appreciated. Musculoskeletal: Normal range of motion, no pitting or edema. No cyanosis. NEUROLOGICAL: Cranial nerves grossly intact. Normal speech, normal gait. Normal sensory, motor exams PSYCH: Normal mood, normal affect. SKIN: Warm, Dry, normal turgor, no rashes or lesions noted. Past Medical History - General Information source: Patient - Social History Smoking Status: Unknown if Ever Smoked Family History: Reviewed & Not Pertinent, CVA, DM, Hyperlipidemia, Hypertension - Past Medical History Cardiac Medical History: Reports: Hx Hypercholesterolemia, Hx Hypertension Renal/ Medical History: Denies: Hx Peritoneal Dialysis Musculoskeletal Medical History: Reports Hx Arthritis - Chronic back pain, 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 Traumatic Medical History: Reports: Hx Fractures - Finger needed reattached Past Surgical History: Reports: Hx Orthopedic Surgery - Reattachment of finger, total knee replacement left - Immunizations Immunizations up to date: Yes Hx Diphtheria, Pertussis, Tetanus Vaccination: Yes Vertical Provider Document - CONSTITUTIONAL Agree With Documented VS: Yes Exam Limitations: No Limitations General Appearance: WD/WN - INFECTION CONTROL TRAVEL OUTSIDE OF THE [place] IN LAST 30 DAYS: No Course - Re-evaluation Re-evalutation: 06/15/20 13:27 Afebrile vital stable no distress, is to stop taking the bacitracin ointment as this is likely causing his itchiness since he is allergic to and is on his allergy list. Advised to continue taking the Keflex for his middle ear infection but will prescribe ofloxacin drops 5 drops twice a day for 7 days to treat his acute otitis externa. Advised to place cotton balls in ears prior to showering. If symptoms become progressive he is advised to return to the emergency room but also to follow-up with research and development engineer. After performing a Medical Screening Examination, I estimate there is LOW risk for malignant otitis media, mastoiditis, MENINGITIS, or ACUTE CORONARY SYNDROME, thus I consider the discharge disposition reasonable. I have reevaluated this patient multiple times and no significant life threatening changes are noted. The patient and I have discussed the diagnosis and risks, and we agree with discharging home to follow-up on an outpatient basis with the understanding that symptoms and presentations can change. We also discussed returning to the Emergency Department immediately if new or worsening symptoms occur. We have discussed the symptoms which are most concerning (e.g., high fevers, confusion) that necessitate immediate return. - Vital Signs Vital signs: Temp Pulse Resp BP Pulse Ox 98.0 F 76 18 134/85 H 96 06/15/20 12:37 06/15/20 12:37 06/15/20 12:37 06/15/20 12:37 06/15/20 12:37 Discharge - Discharge Clinical Impression: Right otitis externa, Right otitis media Condition: Stable Disposition: HOME, SELF-CARE Instructions: Otitis Externa ([facility]), Acetaminophen, Otitis Media ([facility]) Additional Instructions: Please discontinue taking the bacitracin ointment. Please use the ofloxacin drops as directed. Please continue the oral antibiotics that you have been taking, the Keflex. Please follow-up with your primary care provider, if your symptoms become worse return to the emergency room. You can also follow-up with ear nose and throat as needed. You can alternate between Tylenol and ibuprofen for pain control. Return immediately for any new or worsening symptoms. Follow up with primary care provider, call tomorrow to make followup appointment. Prescriptions: Ofloxacin [Floxin 0.3% Otic Drops 5 ml] 5 drop OT BID 7 Days #1 bottle Referrals: CARMEN SALDANA PA [Primary Care Provider] - Follow up as needed TOMMY ESTRADA MD [ACTIVE STAFF] - Follow up as needed
== END 2020-06-15 13:23 | disposition home or self-care (01) ==
LOC: ER 12:19
DX: H60.91 Unspecified otitis externa, right ear (principal); H66.91 Otitis media, unspecified, right ear; L29.9 Pruritus, unspecified; I10 Essential (primary) hypertension; Z79.899 Other long term (current) drug therapy
CPT/HCPCS: 99283